=== PATIENT | female | born 1985 | race Caucasian/White ===

== ENCOUNTER 2016-07-23 00:17 | Inpatient (IN) | payer BC ==
[~2016-07-23] VITALS: Ht 162.6 cm; Wt 77.1 kg
[2016-07-23] VITALS (42 sets, daily range): BP systolic 135–157; BP diastolic 68–119; PULSE 76–121; RESP 16–20; TEMP 97.5–98.3
[2016-07-23] MEDS ORDERED: LACTATED RINGER'S 1000 ML INJ 1,000 ML IV SCH ×3 (00:45→16:32)
[2016-07-23] MEDS ORDERED: CITRIC ACID-SODIUM CITRATE LIQ 30 ML UDC PO SCH ×2 (00:45→06:45)
[2016-07-23] MEDS ORDERED: ONDANSETRON HCL 4 MG/2 ML VIAL IV PRN (00:45)
[2016-07-23] MEDS ORDERED: SODIUM CHLORID 0.9% 500 ML INJ 500 ML IV PRN (00:45)
[2016-07-23] MEDS ORDERED: OXYTOCIN 30 UNITS-500ML PREMIX 500 ML IV ONE (00:45)
[2016-07-23] MEDS ORDERED: LIDOCAINE HCL 1% 50 ML VIAL I-DERMAL PRN (00:45)
[2016-07-23] MEDS ORDERED: LIDOCAINE HCL 1% 50 ML VIAL INFIL PRN (00:45)
[2016-07-23] MEDS ORDERED: MINERAL OIL 10 ML VIAL TOPICAL PRN (00:45)
[2016-07-23] MEDS ORDERED: LACTATED RINGER'S 1000 ML INJ 1,000 ML IV PRN (00:45)
[2016-07-23] MEDS ORDERED: PENICILLIN G POTASSIUM INJ 5,000,000 UNITS in SODIUM CHLORIDE 0.9% INJ 100 ML IV ONE (00:45)
[2016-07-23] MEDS ORDERED: fentaNYL 2MCG-BUPIV 0.125% INJ 100 ML ONE (00:58)
[2016-07-23] MEDS ORDERED: SODIUM CHLOR 0.9% 1000 ML INJ 1,000 ML IV PRN (01:05)
--- NOTE | 2016-07-23 01:06 | HHI.HP ---
HPI Chief Complaint My water broke Date Seen: Jul 23, 2016 Time Seen: 00:30 Travel History International Travel<30 Days: No Contact w/Intl Traveler<30Days: No Known Affected Area: No History of Present Illness HPI 31-year-old at 38 weeks and 2 days of gestation, ANISA 08/04/2016, patient presents to labor and delivery stating that her water broke at home at 11 PM on 07/22/16, the patient reported that the fluid was clear, examination confirms spontaneous rupture of membranes. Vaginal exam shows cervix is 6 cm dilated 80 % effaced at -2 station. Patient is screaming in pain due to contractions, she denies vaginal bleeding. Patient reports presence of movement. care is with Dr. Leilani Storey. course is significant for group B strep culture positive and history of herpes simplex infection. Patient denies recent outbreaks however she is on acyclovir for prophylaxis. Para: 0 : 1 Miscarriage: 0 : 0 History Past Medical History Narrative Medical History of herpes simplex infection Obstetric History Obstetric History Primigravida Past Surgical History Narrative Surgical Status post rhinoplasty Family History Narrative Family History Unremarkable Family History: Negative Social History Alcohol Use: No Tobacco Use: No Substance Abuse: No Allergies-Medications (Allergen,Severity, Reaction): Coded Allergies: No Known Allergies (Unverified , 07/23/16) Home Meds Reported Medications Valacyclovir (Valtrex)500 Mg [id number] Mg PO BID #60 TAB Ref 0 07/23/16 Review of Systems Except as stated in HPI: all other systems reviewed are Neg Genitourinary: Other (spontaneous rupture of membranes, contractions) Physical Exam Narrative GENERAL: Well-nourished, well-developed patient. SKIN: Warm and dry. HEAD: Normocephalic and atraumatic. EYES: No scleral icterus. No injection or drainage. ENT: No nasal drainage noted. Mucous membranes pink. Airway patent. NECK: Supple, trachea midline. No JVD. CARDIOVASCULAR: Regular rate and rhythm without murmurs, gallops, or rubs. RESPIRATORY: Breath sounds equal bilaterally. No accessory muscle use. BREASTS: Bilateral exam showed no masses , no retractions, no nipple discharge. ABDOMEN/GI: Abdomen soft, gravid, non-tender, bowel sounds present, no rebound, no guarding Gravid to 38 weeks size Fundal Height: 38 cm GENITOURINARY: External Genitalia: intact and normal in appearance BUS glands: Normal Cervix: 6 cm, 80%, -2, posterior, patient is grossly ruptured with pooling of fluid in the vaginal vault Dilatation: 6 cm Effacement: 80% Station: -2 Presentation: Cephalic Membranes: Grossly ruptured Uterine Contractions: Irregular FHT's: Category: one Baseline: 130s Reactive: Yes Variability: Moderate Decels: None EXTREMITIES: No cyanosis or edema. BACK: Nontender without obvious deformity. No CVA tenderness. NEUROLOGICAL: Awake and alert. Motor and sensory grossly within normal limits. Five out of 5 muscle strength in all muscle groups. Normal speech. Data Data Vital Signs Reviewed: Yes Orders Ob (2e) Additional Admit Info (07/23/16 00:43) Admit To Inpatient (07/23/16 ) Code Status (07/23/16 00:45) Vital Signs (Adult) .Per protocol (07/23/16 00:45) Activity Oob Ad Ayaka (07/23/16 00:45) ^ Heart (07/23/16 00:45) ^ Amnioinfusion (07/23/16 00:45) Urinary Catheter Management .ONCE (07/23/16 00:45) Diet Npo (07/23/16 Breakfast) Lactated Ringer's 1000 Ml Inj (Lr 1000 M (07/23/16 00:45) Lactated Ringer's 1000 Ml Inj (Lr 1000 M (07/23/16 00:45) Sodium Chlorid 0.9% 500 Ml Inj (Ns 500 M (07/23/16 00:45) Sodium Chlor 0.9% 1000 Ml Inj (Ns 1000 M (07/23/16 01:05) Lidocaine 1% Inj (50 Ml) (Xylocaine 1% I (07/23/16 00:45) Citric Acid-Sodium Citrate Liq (Bicitra (07/23/16 00:45) Ondansetron Inj (Zofran Inj) (07/23/16 00:45) Fentanyl Inj (Fentanyl Inj) (07/23/16 00:45) Fentanyl Inj (Fentanyl Inj) (07/23/16 00:45) Penicillin G Potassium Inj (Pfizerpen-G (07/23/16 00:45) Penicillin G Potassium Inj (Pfizerpen-G (07/23/16 04:45) Complete Blood Count With Diff (07/23/16 00:45) Hold Clot (07/23/16 00:45) Abo/Rh Blood Type (07/23/16 00:45) Urinalysis - C+S If Indicated (07/23/16 00:45) Type And Screen (07/23/16 00:45) Resp Oxygen Non Rebreathe Mask (07/23/16 ) ^ Epidural / Intrathecal Infus (07/23/16 00:45) Oxytocin 30 Units-500ml Premix (Pitocin (07/23/16 00:45) Lidocaine 1% Inj (50 Ml) (Xylocaine 1% I (07/23/16 00:45) Light Mineral Oil (Muri-Lube Oil) (07/23/16 00:45) Inpatient Certification (07/23/16 ) Assessment/Plan Problem List: (1) 38 weeks gestation of (2) Positive GBS test (3) History of herpes simplex infection (4) Elevated blood pressure affecting , antepartum Assessment and Plan Term at 38 weeks and 2 days of gestation with premature rupture of membranes in labor, reassuring heart status, GBS positive. 1. Term with premature rupture of membranes in labor * Admit patient to labor and delivery * Keep patient nothing by mouth * Send admission blood work * Continuous heart monitoring * Patient may have IV pain medications or epidural for pain management * Monitor progress of labor * Anticipate vaginal delivery * Consider Pitocin augmentation if needed 2. Positive GBS culture * We'll give antibiotics for GBS prophylaxis 3. History of herpes simplex infection * Patient denies recent outbreaks * No vaginal lesions is seen * Patient is currently on prophylaxis * Patient may have vaginal delivery 4. Elevated blood pressure * Patient denies headaches, blurry vision and epigastric pain * We'll send preeclamptic blood work * Monitor blood pressure * Watch for signs and symptoms of preeclampsia * May need for magnesium sulfate for seizure prophylaxis if there is evidence of preeclampsia * Dr. Eufemia Mcneill is notified. Discharge Planning We'll discharge patient to home in 2-3 days after delivery Juan Hoffman MD Jul 23, 2016 01:05
[2016-07-23] MEDS ORDERED: VALT500T PO (01:08)
[2016-07-23] MEDS ORDERED: CALNTAB (01:09)
[2016-07-23 01:14] LABS: AUTOMATED NEUTROPHIL # 5.3 TH/MM3 (1.8-7.7); BASOPHIL % 0.4 % (0.0-2.0); EOSINOPHIL # 0.1 TH/MM3 (0-0.4); EOSINOPHIL % 1.4 % (0.0-4.0); HEMATOCRIT 37.6 % (35.0-46.0); HEMO FLAGS DIFF FINAL; LYMPH % 35.1 % (9.0-44.0); LYMPHOCYTE # 3.3 TH/MM3 (1.0-4.8); MEAN CELL VOLUME 90.1 FL (80.0-100.0); MEAN CORPUSCULAR HEMOGLOBIN 31.6 PG (27.0-34.0); MONO % 5.7 % (0.0-8.0); NEUT % 57.4 % (16.0-70.0); PLATELET COUNT 151 TH/MM3 (150-450); RED BLOOD COUNT 4.18 MIL/MM3 (4.00-5.30); RED CELL DISTRIBUTION WIDTH 13.5 % (11.6-17.2); WHITE BLOOD COUNT 9.3 TH/MM3 (4.0-11.0)
[2016-07-23 01:41] LABS: ALT (GPT) 36 U/L (10-53); ANION GAP 11 MEQ/L (5-15); AST (GOT) 20 U/L (15-37); BICARBONATE 19.8 MEQ/L (21.0-32.0); BLOOD UREA NITROGEN 16 MG/DL (7-18); CHLORIDE 108 MEQ/L (98-107); GLOMERULAR FILTRATION RATE 82 ML/MIN (>89); POTASSIUM 3.5 MEQ/L (3.5-5.1); SODIUM (NA) 139 MEQ/L (136-145); URIC ACID 6.1 MG/DL (2.6-6.0)
[2016-07-23 01:43] LABS: ALKALINE PHOSPHATASE 326 U/L (45-117); LDH SERUM 201 U/L (84-246); TOTAL BILIRUBIN ADULT 0.2 MG/DL (0.2-1.0)
[2016-07-23] MEDS ORDERED: LABETALOL HCL 100 MG/20 ML VIAL IV PUSH PRN (03:00)
[2016-07-23 03:50] LABS: BACTERIA, URINE RARE /hpf; BLOOD, URINE MOD (NEG); COMMENT (UR) CULT NOT INDICATED; CULTURE IF INDICATED CULT NOT INDICATED; GLUCOSE,URINE NEG (NEG); KETONE, URINE NEG (NEG); MUCUS URINE FEW /lpf (OCC); NITRITE,URINE NEG (NEG); SQUAMOUS EPITHELIAL CELL URINE <1 /hpf (0-5); URINE COLOR YELLOW (YELLW/STRAW)
[2016-07-23] MEDS ORDERED: PENICILLIN G POTASSIUM INJ 2,500,000 UNITS in SODIUM CHLORIDE 0.9% INJ 100 ML IV SCH (04:45)
[2016-07-23] MEDS ORDERED: LACTATED RINGER'S 1000 ML INJ 1,000 ML IV ONE (05:11)
[2016-07-23] MEDS ORDERED: OXYTOCIN 10 UNIT/ML AMP ONE (05:40)
[2016-07-23] MEDS ORDERED: ceFAZolin 2 GM PREMIX 50 ML IV SCH (06:15)
[2016-07-23] MEDS ORDERED: MORPHINE SULFATE PF 5 MG/10 ML VIAL ONE (06:50)
[2016-07-23] MEDS ORDERED: ONDANSETRON HCL 4 MG/2 ML VIAL ONE (06:50)
--- NOTE | 2016-07-23 06:56 | PD.OB.DELI ---
Procedure Note Section Procedure Pre Op Diagnosis: (1) 38 weeks gestation of (2) History of herpes simplex infection (3) Positive GBS test (4) Elevated blood pressure affecting , antepartum (5) Arrested labor Post Op Diagnosis: (1) 38 weeks gestation of (2) Positive GBS test (3) History of herpes simplex infection (4) Elevated blood pressure affecting , antepartum (5) Arrested labor (6) Cephalopelvic disproportion Performed by Eufemia Mcneill Procedure: Primary Low Transverse Sec Indication for delivery: malposition (ROT), Other (CPD) Informed consent obtained: For anesthesia, For procedure Confirmed correct: Patient, Procedure, Site, Time-out taken Anesthesia: Epidural Medication prior to procedure: As documented in eMAR Monitoring during procedure: Blood pressure monitoring, Pulse oximetry Urinary catheter: Inserted using sterile technique, To dependent drainage, ml urine output (100ml) Sterile preparation: With 2% chlorexidine (Hibiclens) Position: Supine with wedge to right side, Supine with safety belt applied Operative Features Skin Incision: Pfannenstiel Uterine Incision: Low transverse w/knife / blunt ext Membranes Ruptured: Previously Presentation: Other (ROT) Delivery of infant: Uneventful Infant: Male One Minute : 8 Five Minute : 9 Weight: 5 lb 13 oz Status of infant: Viable, Cord blood, Nursery present Placenta delivered: Intact Medications: Antibiotics Estimated blood loss: 500ml Procedure tolerated: Well Maternal Condition: Stable Condition: Stable Procedure in detail dictated Eufemia Mcneill MD Jul 23, 2016 06:56
[2016-07-23] MEDS ORDERED: OXYTOCIN 30 UNITS-500ML PREMIX 500 ML ONE (06:58)
[2016-07-23] MEDS ORDERED: ONDANSETRON ODT 4 MG TAB PO PRN (08:30)
[2016-07-23] MEDS ORDERED: ALUMINUM/MAGNESIUM/SIMETH 30 ML CUP PO PRN (08:30)
[2016-07-23] MEDS ORDERED: BENZOCAINE 20% TOPICAL SPRAY 60 ML CAN TOPICAL PRN (08:30)
[2016-07-23] MEDS ORDERED: SODIUM CHLORIDE 0.9% FLUSH 5 ML FLUSH IV PRN ×2 (08:30→11:45)
[2016-07-23] MEDS ORDERED: WITCH HAZEL 50%/GLYCERIN 12.5% 40 PAD JAR TOPICAL PRN (08:30)
[2016-07-23] MEDS ORDERED: ACETAMINOPHEN 325 MG TAB PO PRN (08:30)
[2016-07-23] MEDS ORDERED: DOCUSATE SODIUM 50 MG/SENNA 8.6 MG TAB PO PRN (08:30)
[2016-07-23] MEDS ORDERED: ZOLPIDEM TARTRATE 5 MG TAB PO PRN (08:30)
[2016-07-23] MEDS ORDERED: SODIUM CHLORIDE 0.9% FLUSH 5 ML FLUSH IV SCH ×2 (09:00→21:00)
[2016-07-23] MEDS ORDERED: KETOROLAC TROMETHAMINE 60 MG/2 ML (IM) VIAL IM PRN (10:15)
[2016-07-23] MEDS ORDERED: PERINEZE TRIPLE DYE 1 SWAB TOP ONE (10:15)
[2016-07-23] MEDS ORDERED: D10W 500 ML IV PRN (10:15)
[2016-07-23] MEDS ORDERED: PHYTONADIONE 1 MG IF GREATER THAN OR = 2500 GMS IM ONE (10:15)
[2016-07-23] MEDS ORDERED: DEXTROSE (INFANT/PEDS) GEL 2.5 ML/GM (40%) TUBE BUCCAL PRN (10:15)
[2016-07-23] MEDS ORDERED: ERYTHROMYCIN 0.5% OPTH OINT 1 GM TUBO EACH EYE ONE (10:15)
[2016-07-23] MEDS ORDERED: EPIDURAL-DO NOT ADMINISTER ANTICOAGULANTS XX PRN (10:45)
[2016-07-23] MEDS ORDERED: EPIDURAL-NO SYSTEMIC NARCOTICS XX PRN (10:45)
[2016-07-23] MEDS ORDERED: EPIDURAL-NALOXONE HCL 0.4 MG/ML AMP IV PRN (10:45)
[2016-07-23] MEDS ORDERED: EPIDURAL-DIPHENHYDRAMINE HCL 50 MG CAP PO PRN (10:45)
[2016-07-23] MEDS ORDERED: EPIDURAL-DIPHENHYDRAMINE HCL 50 MG/ML VIAL IV PUSH PRN (10:45)
[2016-07-23] MEDS ORDERED: NO SYSTEM NARCOTICS XX PRN (11:00)
[2016-07-23] MEDS ORDERED: DO NOT ADMINISTER ANTICOAGULANTS XX PRN (11:00)
[2016-07-23] MEDS ORDERED: ePHEDrine/NS 50 MG/5 ML SYR IV PRN (11:00)
[2016-07-23] MEDS ORDERED: fentaNYL 2MCG-BUPIV 0.125% INJ 100 ML EPIDURAL SCH (11:00)
[2016-07-23] MEDS ORDERED: MEASLES, MUMPS, RUBELLA VACCINE 0.5 ML VIAL SQ ONE (16:00)
[2016-07-23] MEDS ORDERED: DIPHTH/TETANUS/ACEL PERTUSSIS (BOOSTER) 0.5 ML VIAL/PFS IM ONE (16:00)
[2016-07-23] MEDS: IBUPROFEN 600 MG TAB PO PRN (17:50)
[2016-07-23] MEDS ORDERED: OXYTOCIN 30 UNITS-500ML PREMIX 500 ML IV PRN (21:45)
[2016-07-24] MEDS: IBUPROFEN 600 MG TAB PO PRN ×2 (01:48→16:30)
[2016-07-24 04:00] VITALS: BP 126/58; PULSE 76; RESP 18; TEMP 98.2
--- NOTE | 2016-07-24 08:23 | HHI.OB ---
Subjective Post Operative Day: 1 Remarks s/p primary LTCD for CPD at term Objective Vitals/I&O Vital Signs Date Time Temp Pulse Resp B/P Pulse Ox O2 Delivery O2 Flow Rate FiO2 07/23/16 15:10 98.3 86 18 144/89 07/23/16 09:50 98.1 90 16 153/97 Result Diagram: 07/23/16 0055 07/23/1654 Objective Remarks GENERAL: Well-nourished, well-developed patient. CARDIOVASCULAR: Regular rate and rhythm without murmurs, gallops, or rubs. RESPIRATORY: Breath sounds equal bilaterally. No accessory muscle use. ABDOMEN/GI: Abdomen soft, non-tender, bowel sounds present. Incision: Clean, dry and intact. Bandage in place. Fundus: Firm, non-tender at umbilicus. GENITOURINARY: Light bleeding. EXTREMITIES: No cyanosis or edema, non-tender, without signs of DVT. Medications and IVs Current Medications Medications (Trade) Dose Ordered Sig/Rosibel Route Start Time Stop Time Status Last Admin (Tylenol) 650 mg Q4H PRN PO 07/23/16 08:30 (Motrin) 600 mg Q6H PRN PO 07/23/16 08:30 07/24/16 01:48 (Percocet 5-325 Mg) 1 tab Q4H PRN PO 07/23/16 08:30 (Percocet 5-325 Mg) 2 tab Q4H PRN PO 07/23/16 08:30 (Americaine 20% Top Spr) 1 spray Q4H PRN TOPICAL 07/23/16 08:30 (Tucks Pads) 1 applic QID PRN TOPICAL 07/23/16 08:30 (Yakelin-Colace) 2 tab Q12H PRN PO 07/23/16 08:30 07/24/16 01:47 (Ambien) 5 mg HS PRN PO 07/23/16 08:30 (Mag-Al Plus Susp Liq) 15 ml Q8H PRN PO 07/23/16 08:30 (Zofran Odt) 4 mg Q6H PRN PO 07/23/16 08:30 (Toradol Inj) 30 mg Q6H PRN IM 07/23/16 10:15 07/23/16 10:59 Miscellaneous Information NO SYSTEMIC NARCOTICS TO BE GIVEN FO... UNSCH PRN XX 07/23/16 10:45 07/24/16 10:44 (Narcan Inj) 0.4 mg UNSCH PRN IV 07/23/16 10:45 07/24/16 10:44 (Benadryl Inj) 25 mg Q6H PRN IV PUSH 07/23/16 10:45 07/24/16 10:44 (Benadryl) 50 mg Q6H PRN PO 07/23/16 10:45 07/24/16 10:44 Miscellaneous Information ALL NURSING DEPARTMENTS UNSCH PRN XX 07/23/16 10:45 07/24/16 10:44 Miscellaneous Information No systemic narcotics to be given except... UNSCH PRN XX 07/23/16 11:00 07/24/16 10:59 Miscellaneous Information DO NOT ADMINISTER ANY ANTICOAGUL... UNSCH PRN XX 07/23/16 11:00 07/24/16 10:59 (fentaNYL 2MCG-BUPIV 0.125% INJ) 100 ml @ 0 mls/hr TITRATE EPIDURAL 07/23/16 11:00 Ephedrine Sulfate 10 mg 10 mg UNSCH PRN IV 07/23/16 11:00 07/24/16 10:59 (Lr 1000 ml Inj) 1,000 ml @ 100 mls/hr Q10H IV 07/23/16 16:32 07/24/16 12:31 07/23/16 12:50 (NS Flush) 2 ml BID IV 07/23/16 21:00 (NS Flush) 2 ml UNSCH PRN IV 07/23/16 11:45 Assessment/Plan Problem List: (1) 38 weeks gestation of (2) Positive GBS test (3) History of herpes simplex infection (4) Elevated blood pressure affecting , antepartum Assessment and Plan PPD/POD#1 routine PP/postop care encourage ambulation & shower today pt dx with PIH, doing better, no symptoms, mild BPs being monitored for wt loss & poor feeding plan circ prior to discharge routine d/c planning for Discharge Planning routine Chhaya Storey MD Jul 24, 2016 08:23
[2016-07-24] MEDS: oxyCODONE/ACETAMINOPHEN 5 MG/325 MG TAB PO PRN ×4 (08:24→20:46)
[2016-07-24] MEDS ORDERED: IBUP-232 PO (08:25)
[2016-07-24] MEDS ORDERED: SENN1TAB PO (08:25)
[2016-07-24] MEDS ORDERED: OXYC1TAB63 PO (08:25)
[2016-07-24] MEDS: DOCUSATE SODIUM 50 MG/SENNA 8.6 MG TAB PO SCH ×2 (09:37→20:46)
[2016-07-25] MEDS: IBUPROFEN 600 MG TAB PO PRN ×4 (00:40→22:01)
[2016-07-25] MEDS: oxyCODONE/ACETAMINOPHEN 5 MG/325 MG TAB PO PRN ×6 (00:41→23:39)
--- NOTE | 2016-07-25 08:47 | HHI.OB ---
Subjective Post Operative Day: 2 Remarks doing well with nursing pain controlled no worries except told weight loss outside norm. having wet diapers and nursing well (?) Objective Vitals/I&O Vital Signs Date Time Temp Pulse Resp B/P Pulse Ox O2 Delivery O2 Flow Rate FiO2 07/24/16 17:36 18 07/24/16 13:35 18 Result Diagram: 07/23/165 07/23/1654 Objective Remarks GENERAL: Well-nourished, well-developed patient. CARDIOVASCULAR: Regular rate and rhythm without murmurs, gallops, or rubs. RESPIRATORY: Breath sounds equal bilaterally. No accessory muscle use. ABDOMEN/GI: Abdomen soft, non-tender, bowel sounds present. Incision: Clean, dry and intact. Bandage in place. Fundus: Firm, non-tender at umbilicus. GENITOURINARY: Light bleeding. EXTREMITIES: No cyanosis or edema, non-tender, without signs of DVT. Medications and IVs Current Medications Medications (Trade) Dose Ordered Sig/Rosibel Route Start Time Stop Time Status Last Admin (Tylenol) 650 mg Q4H PRN PO 07/23/16 08:30 (Motrin) 600 mg Q6H PRN PO 07/23/16 08:30 07/25/16 00:40 (Percocet 5-325 Mg) 1 tab Q4H PRN PO 07/23/16 08:30 07/24/16 20:46 (Percocet 5-325 Mg) 2 tab Q4H PRN PO 07/23/16 08:30 07/25/16 05:29 (Americaine 20% Top Spr) 1 spray Q4H PRN TOPICAL 07/23/16 08:30 (Tucks Pads) 1 applic QID PRN TOPICAL 07/23/16 08:30 (Ambien) 5 mg HS PRN PO 07/23/16 08:30 (Mag-Al Plus Susp Liq) 15 ml Q8H PRN PO 07/23/16 08:30 (Zofran Odt) 4 mg Q6H PRN PO 07/23/16 08:30 Ketorolac Tromethamine 30 mg 30 mg Q6H PRN IM 07/23/16 10:15 07/23/16 10:59 (fentaNYL 2MCG-BUPIV 0.125% INJ) 100 ml @ 0 mls/hr TITRATE EPIDURAL 07/23/16 11:00 (NS Flush) 2 ml BID IV 07/23/16 21:00 (NS Flush) 2 ml UNSCH PRN IV 07/23/16 11:45 (Yakelin-Colace) 1 tab Q12H PO 07/24/16 09:00 07/24/16 20:46 Assessment/Plan Problem List: (1) 38 weeks gestation of (2) Positive GBS test (3) History of herpes simplex infection (4) Elevated blood pressure affecting , antepartum Assessment and Plan PPD/POD#2 BPs still mildly elevated last evening if up this am begin labetolol safe with nursing circumcision discussed Discharge Planning routine Tori Green MD Jul 25, 2016 08:47
[2016-07-25 08:50] VITALS: BP 135/92; PULSE 84; RESP 20; TEMP 97.8
[2016-07-25] MEDS: DOCUSATE SODIUM 50 MG/SENNA 8.6 MG TAB PO SCH ×2 (09:31→21:00)
[2016-07-25 16:05] VITALS: BP 130/81; PULSE 95; RESP 16; TEMP 98
[2016-07-25] MEDS ORDERED: LABE100T2 PO (16:24)
--- NOTE | 2016-07-25 19:13 | MP ---
cc: EUFEMIA MCNEILL MD DATE OF SURGERY: 07/23/2016 PREOPERATIVE DIAGNOSIS 1. Intrauterine 38 weeks 2. Spontaneous rupture membranes 3. Arrest of descent. POSTOPERATIVE DIAGNOSIS 1. Intrauterine 38 weeks 2. Spontaneous rupture membranes 3. Arrest of descent. 4. Pelvic disproportion ROT presentation. INDICATIONS The patient is a 31-year-old G1 who presented at 30 weeks and 2 days with spontaneous rupture of membranes. She was 6 cm dilated an 80% effaced -2 station. She quickly progressed to complete and -1 station. She had no descent over three hours, after over an hour of pushing the baby was developing molding and caput, was occiput transverse presentation, The pelvis was very narrow. These findings were discussed with the patient and her and discussed that it would be desired to proceed with a delivery and the patient and were in agreement. Consent reviewed as well as risks. Consents signed on chart. PROCEDURE PERFORMED Primary low transverse delivery. Cord blood collection and tissue sampling collection SURGEON Eufemia Mcneill MD. [employer] MECHANIC: Dr. Tonie Jett. ESTIMATED BLOOD LOSS: 500 mls IV FLUIDS: 1500 mls. URINE OUTPUT 100 ml's. INTRAOPERATIVE FINDINGS Viable male . weight of 5 pounds 3 ounces, 's of 8 and 9 at 1 minute and 5-minute respectively. Normal ovaries, tubes and uterus. COMPLICATIONS None. COUNTS: Counts correct x3 ANTIBIOTICS: Antibiotics Ancef two grams given IV pre incision. DVT prophylaxis SCDs on bilateral extremities DISPOSITION Stable to PACU. SPECIMEN Cord blood PROCEDURE IN DETAIL After informed consent the patient was taken to operating room where epidural was noted to be adequate. A Barger was already in place. The abdomen was prepped and draped in normal sterile fashion. A Pfannenstiel skin incision was made with scalpel, carried down to underlying fascia with the Bovie. The fascia was incised in the midline. The fascial incision was extended bilaterally with Gonzales scissors. The fascia was from rectus muscles bluntly. Rectus muscles were in the mid line with the peritoneum entered bluntly. The bladder blade was inserted with visualization of lower uterine segment and bladder flap was created with Metzenbaum scissors and further developed digitally. The bladder blade was replaced. A low transverse uterine incision was made with a scalpel, extended bluntly. The head was noted to be low in the pelvis occiput transverse presentation. The vaginal hand was used to elevate the head and after suction was released, The head was able to be flexed and elevated to the level of the hysterotomy, the head delivered in uncomplicated fashion. The rest of body readily followed with gentle fundal pressure. The cord was double clamped and cut. Baby was bulb suctioned and handed off to waiting pediatricians. A sample of cord blood was collected for cord blood banking a segment of cord was also collected for tissue sampling per parents request. A sample for cord blood was then collected. The placenta was then delivered with gentle cord traction and uterine massage uterus was exteriorized, cleared of all clots and debris with moist laparotomy sponge. Uterus was repaired in two layers of #1 chromic in a running locked fashion followed by an imbricating layer posterior cul-de-sac was irrigated and suctioned the uterus was inspected and noted to be hemostatic. The uterus was replaced into the abdomen anterior cul-de-sac was irrigated and suction. A hysterotomy was noted to be hemostatic. The peritoneum was closed with 2-0 chromic in a running fashion. The fascia was closed #1 Vicryl in a running fashion. The subcutaneous tissue was irrigated and suctioned. Hemostasis was obtained with Bovie. The skin was closed with 3-0 Monocryl in a subcuticular fashion. Steri-Strips were placed. A sterile dressing was placed. The patient tolerated the procedure well. The patient is an acceptable candidate for trial of labor after vaginal delivery, but I discussed that her pelvis was very narrow and despite the baby only be 5 pounds 13 ounces, she was not able to deliver vaginally and it is likely that a would be necessary again. Eufemia Mcneill MD PE/alli /6:43 AM /7:01 PM JOSÉ MIGUEL
[2016-07-25] MEDS: LABETALOL HCL 100 MG TAB PO SCH (21:00)
[2016-07-26] MEDS: oxyCODONE/ACETAMINOPHEN 5 MG/325 MG TAB PO PRN ×2 (03:41→08:16)
[2016-07-26 03:46] VITALS: BP 130/79; PULSE 81; RESP 18; TEMP 99.2
[2016-07-26] MEDS: IBUPROFEN 600 MG TAB PO PRN (03:56)
--- NOTE | 2016-07-26 08:00 | HHI.OB ---
Subjective Post Operative Day: 3 Remarks no complaints, +BM Objective Vitals/I&O Vital Signs Date Time Temp Pulse Resp B/P Pulse Ox O2 Delivery O2 Flow Rate FiO2 07/26/16 03:46 130/79 07/26/16 03:46 99.2 81 18 07/25/16 20:00 16 07/25/16 16:05 98.0 95 16 130/81 07/25/16 08:50 97.8 84 20 135/92 Result Diagram: 07/23/165407/23/1654 Objective Remarks GENERAL: Well-nourished, well-developed patient. CARDIOVASCULAR: Regular rate and rhythm without murmurs, gallops, or rubs. RESPIRATORY: Breath sounds equal bilaterally. No accessory muscle use. ABDOMEN/GI: Abdomen soft, non-tender, bowel sounds present. Incision: Clean, dry and intact. Fundus: Firm, non-tender at umbilicus. GENITOURINARY: Light bleeding. EXTREMITIES: No cyanosis or edema, non-tender, without signs of DVT. Medications and IVs Current Medications Medications (Trade) Dose Ordered Sig/Rosibel Route Start Time Stop Time Status Last Admin (Tylenol) 650 mg Q4H PRN PO 07/23/16 08:30 (Motrin) 600 mg Q6H PRN PO 07/23/16 08:30 07/26/16 03:56 (Percocet 5-325 Mg) 1 tab Q4H PRN PO 07/23/16 08:30 07/24/16 20:46 (Percocet 5-325 Mg) 2 tab Q4H PRN PO 07/23/16 08:30 07/26/16 03:41 (Americaine 20% Top Spr) 1 spray Q4H PRN TOPICAL 07/23/16 08:30 (Tucks Pads) 1 applic QID PRN TOPICAL 07/23/16 08:30 (Ambien) 5 mg HS PRN PO 07/23/16 08:30 07/25/16 23:41 (Mag-Al Plus Susp Liq) 15 ml Q8H PRN PO 07/23/16 08:30 (Zofran Odt) 4 mg Q6H PRN PO 07/23/16 08:30 Ketorolac Tromethamine 30 mg 30 mg Q6H PRN IM 07/23/16 10:15 07/23/16 10:59 (fentaNYL 2MCG-BUPIV 0.125% INJ) 100 ml @ 0 mls/hr TITRATE EPIDURAL 07/23/16 11:00 (NS Flush) 2 ml BID IV 07/23/16 21:00 (NS Flush) 2 ml UNSCH PRN IV 07/23/16 11:45 (Yakelin-Colace) 1 tab Q12H PO 07/24/16 09:00 07/25/16 21:00 (Trandate) 100 mg Q12HR PO 07/25/16 21:00 07/25/16 21:00 Assessment/Plan Problem List: (1) 38 weeks gestation of (2) Positive GBS test (3) History of herpes simplex infection (4) Elevated blood pressure affecting , antepartum Assessment and Plan PPD/POD#3 BPs better with labetolol 100 mg BID d/c home, rto 1 wk Discharge Planning routine Attending Attestation pt seen by Karyn Bedolla MD Jul 26, 2016 08:00
--- NOTE | 2016-07-26 08:01 | HHI.DCPOC ---
Discharge Care Plan Your Health Problems Are: Pelvic pain Report Symptoms to Your Doctor -Temperate above 100.5 degrees -Redness, of incision or excessive or foul smelling drainage -Unusual pain or calf pain -Increased vaginal bleeding -Painful or difficulty urinating -Feelings of extreme sadness or anxiety after 2 weeks Goals to Promote Your Health * To prevent worsening of your condition and complications * To maintain your health at the optimal level Directions to Meet Your Goals Take your medications as prescribed Follow your dietary instruction Follow activity as directed Ensure plenty of rest for recovery Drink fluids for hydration Keep your appointments as scheduled Take your immunizations and boosters as scheduled If your symptoms worsen call your PCP, if no PCP go to Urgent Care Center or Emergency Room Smoking is Dangerous to Your Health. Avoid second hand smoke Call the 24-hour crisis hotline for domestic abuse at Karyn Dawkins MD Jul 26, 2016 08:01
[2016-07-26 08:10] VITALS: BP 117/82; PULSE 81; RESP 16; TEMP 98.5
[2016-07-26] MEDS: DOCUSATE SODIUM 50 MG/SENNA 8.6 MG TAB PO SCH (08:16)
[2016-07-26] MEDS: LABETALOL HCL 100 MG TAB PO SCH (09:00)
== END 2016-07-26 11:52 | disposition home or self-care (01) | DRG 765 ==
LOC: HOBED 00:17 → H2EB 00:48 → H1EA 09:00
PROVIDERS: ADMIT Obstetrics & Gynecology; ATTEND Obstetrics & Gynecology
PROC: 10D00Z1 Extraction of Products of Conception, Low, Open Approach (ICD-10-PCS; principal; 2016-07-23)
PROC: 3E0S3CZ (ICD-10-PCS; 2016-07-23)
PROC: 00HU33Z Insertion of Infusion Device into Spinal Canal, Percutaneous Approach (ICD-10-PCS; 2016-07-23)
DX: O99.824 Streptococcus B carrier state complicating childbirth (principal); O98.513 Other viral diseases complicating pregnancy, third trimester; B00.9 Herpesviral infection, unspecified; O33.1 Maternal care for disproportion due to generally contracted pelvis; O62.1 Secondary uterine inertia; O26.893 Other specified pregnancy related conditions, third trimester; R03.0 Elevated blood-pressure reading, without diagnosis of hypertension; O42.02 Full-term premature rupture of membranes, onset of labor within 24 hours of rupture; Z37.0 Single live birth; Z3A.38 38 weeks gestation of pregnancy
CPT/HCPCS: 59025; 80053; 81001; 82570; 83615; 84156; 84550; 85025; 86850; 86900; 86901; 90715; 99285; J1885; J2274; J2405; J2540; J2590; J7120